=== PATIENT | male | born 1985 | race Two or more races ===

== ENCOUNTER 2025-01-24 12:10 | Observation (INO) | payer MEDICAID, SELFPAY ==
[2025-01-24 12:41] VITALS: BP 108/62; PULSE 108; RESP 18; TEMP 36.6; O2SAT 97
--- NOTE | 2025-01-24 12:46 | EDRME_ITS ---
Rapid Medical Screening Exam [facility] Arrival date/time: 01/24/25 12:10 39-year-old male with no known medical history presents to the emergency room with a chief complaint of generalized weakness, vomiting, nausea, decreased urine output x 2 days patient was sent over by his primary care provider to rule out dehydration. I have greeted and performed a focused initial assessment of this patient. A comprehensive ED assessment and evaluation of the patient, analysis of all test results, and completion of the medical decision making process will be conducted by additional ED providers. Chief Complaint: General Adult/Misc Complain Vital signs: Vital Signs Temperature 97.9 F 01/24/25 12:41 Pulse Rate 108 H 01/24/25 12:41 Respiratory Rate 18 01/24/25 12:41 Blood Pressure 108/62 01/24/25 12:41 Pulse Oximetry (%) 97 01/24/25 12:41 Oxygen Delivery Method Room Air 01/24/25 12:41 Vital signs reviewed by provider: Yes
[2025-01-24 13:11] LABS: Basophils # (Auto) 0.1 Thou/mm3 (0.0-0.2); Basophils % (Auto) 1 % (0-2.5); Eosinophils # (Auto) 0.0 Thou/mm3 (0.0-0.5); Eosinophils % (Auto) 0 % (0-10); Hematocrit 58.7 % (41.0-53.0); Immature Granulocytes Auto 0.04 Thou/mm3 (0.00-0.00); Lymphocytes # (Auto) 2.3 Thou/mm3 (1.0-4.8); Lymphocytes % (Auto) 22 % (10-50); Mean Corpuscular HGB Conc 35.1 g/dl (31.0-37.0); Mean Corpuscular Hemoglobin 33.5 pg (25.0-35.0); Mean Corpuscular Volume 95 fL (80-100); Monocytes # (Auto) 0.9 Thou/mm3 (0.0-0.8); Monocytes % (Auto) 9 % (0-12); Neutrophils # (Auto) 7.1 Thou/mm3 (1.8-7.7); Neutrophils % (Auto) 68 % (37-80); Nucleated Red Blood Cell # 0.00 Thou/mm3 (0.00-0.00); Nucleated Red Blood Cell % 0 /100 WBC (0); Platelet Count 249 Thou/mm3 (140-440); RDW Standard Deviation 51.8 fL (35.1-43.9); Red Blood Count 6.15 Miln/mm3 (4.50-5.90); White Blood Count 10.4 Thou/mm3 (3.8-10.6)
[2025-01-24 13:30] LABS: Alanine Aminotransferase 37 U/L (10-49); Albumin, Serum 5.2 gm/dL (3.5-5.0); Albumin/Globulin Ratio 1.4 (1.2-2.2); Alkaline Phosphatase 79 U/L (46-116); Anion Gap 17 (7-16); Aspartate Amino Transferase 46 U/L (0-34); BUN/Creatinine Ratio 4 Ratio (12-20); Bilirubin,Total 1.8 mg/dL (0.3-1.2); Blood Urea Nitrogen 15 mg/dL (9-23); Calcium 10.7 mg/dL (8.3-10.6); Calcium (Corrected) 10.7 mg/dL (8.5-10.1); Carbon Dioxide 25.2 mMol/L (20.0-31.0); Chloride 97 mMol/L (98-107); Creatine Kinase 948 U/L (34-171); Creatinine (Component) 4.2 mg/dL (0.6-1.3); Estimated Creatinine Clearance 26.4 mL/min (>60); Globulin 3.7 gm/dL (2.3-3.5); Glucose 94 mg/dL (74-106); Lipase 69 U/L (12-53); Osmolality,Calculated 278 (275-295); Potassium 3.6 mMol/L (3.4-5.1); Sodium 139 mMol/L (136-145); Total Protein 8.9 gm/dL (5.7-8.2); eGFR 18 See Note
[2025-01-24 13:38] LABS: Hemoglobin 20.6 g/dL (13.5-16.0)
[2025-01-24 13:54] LABS: Collection Type, Urine Clean Catch
[2025-01-24 14:09] LABS: Bacteria,Urine Rare; Bilirubin,Urine 1+ (Negative); Blood,Urine 1+ (Negative); Broad Casts,Urine < 1 /hpf (0-1); Color,Urine Drk-Yellow (Lt Yel-Yel); Glucose, Urine Trace (Negative); Granular Casts,Urine 2 /hpf (0-1); Hyaline Casts,Urine 1 /hpf (0-1); Ketones,Urine 1+ (Negative); Leukocyte Esterase,Urine Negative (Negative); Nitrite,Urine Negative (Negative); PH,Urine 5.5 (5.0-7.0); Protein,Urine 2+ (Neg - Trace); RBC,Urine 7 /hpf (0-3); Specific Gravity,Urine 1.030 (1.001-1.035); Squamous Epithelial Cell,Urine 2 /hpf (0-5); Urobilinogen,Urine 3.0 mg/dL (0.0-1.0); WBC,Urine 5 /hpf (0-5)
[2025-01-24 14:10] LABS: Clarity,Urine Hazy (Clear/Hazy)
[2025-01-24 14:11] VITALS: BP 130/83; PULSE 99; RESP 19; TEMP 36.8; O2SAT 96
--- NOTE | 2025-01-24 14:29 | EDNOTE_ITS ---
<Statement entered by Cristina Aguila MD - 02/04/25 11:13> As co-signing physician, I was present and available for consult prn. I concur with the plan and care as documented by the midlevel provider. 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 Patient denies diarrhea headache blurred vision seeing spots or loss of consciousness. Patient was referred by PCP for concern of dehydration. Upon exam the patient denies chest pain shortness of breath RME / HPI RME / HPI narrative: 01/24/25 12:10 39-year-old male with no known medical history presents to the emergency room with a chief complaint of generalized weakness, vomiting, nausea, decreased urine output x 2 days patient was sent over by his primary care provider to rule out dehydration. I have greeted and performed a focused initial assessment of this patient. A comprehensive ED assessment and evaluation of the patient, analysis of all test results, and completion of the medical decision making process will be conducted by additional ED providers. Related Data Allergies Allergy/AdvReac Type Severity Reaction Status Date / Time No Known Allergies Allergy Verified 01/24/25 12:13 Review of Systems Review of Systems Narrative Review of Systems: GEN: No fever, no chills, no weight loss EYES: No discharge, no visual changes, no pain HEENT: No ear pain, no congestion, no sore throat PULM: No shortness of breath, no cough, no congestion CV: No chest pain, no dyspnea on exertion, no palpitations GI: + nausea, + vomiting, no diarrhea, no pain, no constipation : No frequency, no urgency, no dysuria MUSC/SKEL: No joint pain, no back pain SKIN: No rash PSYCH: No hallucinations, no depression HEME/LYMPH: No easy bleeding or bruising tendencies NEURO: No weakness, no headache Past Medical History Social History SMOKING STATUS: Never smoker ED Exam Narrative Physical exam: [General: Moderate discomfort but not in any acute distress Head normocephalic HEENT: Within acceptable limits Neck is supple nontender Chest equal chest rise nontender to palpation Respiratory: Clear to auscultation no wheezes crackles or rubs CV: Rate rhythm is regular, tachycardia, no murmurs rubs or clicks Abdomen is distended secondary to body habitus soft nontender no masses positive bowel sounds all 4 quadrants Back: No CVA tenderness no spinous process tenderness from cervical spine thor acic and lumbar spine Skin: Intact no petechiae rash induration ulceration or crepitus Extremities: Moving all extremity against resistance cap refill less than 2 seconds neurosensory intact Neuro: Awake alert oriented x3 Glascow coma 15 no focal deficits] Course Course Course Narrative: Patient's case clinical presentation laboratory results discussed with Dr. Hutchison resident for Dr. Brown who agrees to accept the patient for admission for JORGE LUIS rhabdo myelosis Quality Measures none Orders Category Date Time Status CBC Stat Lab 01/24/25 12:55 Completed CK [Creatine Kinase] Stat Lab 01/24/25 12:55 Completed CMP [Comprehensive Metabolic Panel] Stat Lab 01/24/25 12:55 Completed CMP [Comprehensive Metabolic Panel] Stat Lab 01/24/25 16:10 Completed Creatine Kinase Stat Lab 01/24/25 16:10 Completed Drug Screen,Urine Stat Lab 01/24/25 14:22 Ordered LDH (Lactate Dehydrogenase) Stat Lab 01/24/25 12:55 Completed Lipase Stat Lab 01/24/25 12:55 Completed Magnesium Stat Lab 01/24/25 12:55 Completed Partial Thromboplastin Time Stat Lab 01/24/25 12:55 Completed Prothrombin Time with INR Stat Lab 01/24/25 12:55 Completed UA [Urinalysis] Stat Lab 01/24/25 13:30 Completed Urinalysis, C/S if Indicated Stat Lab 01/24/25 14:22 Ordered Urine Culture Stat Lab 01/24/25 13:30 Received Ondansetron Inj [Zofran Inj] Med 01/24/25 14:28 Discontinued 4 mg IVP X1 ONE Ringers Lactated 1000 ml [Lactated Ringers] 1,000 ml Med 01/24/25 14:25 Discontinued IV 999 mls/hr Ringers Lactated 1000 ml [Lactated Ringers] 1,000 ml Med 01/24/25 15:31 Discontinued IV 999 mls/hr Sodium Chloride 0.9% 1000 ml [Ns] 1,000 ml Med 01/24/25 14:28 Active IV 125 mls/hr Sodium Chloride 0.9% 1000 ml [Ns] 1,000 ml Med 01/24/25 13:55 Discontinued IV 999 mls/hr Sodium Chloride 0.9% 1000 ml [Ns] 1,000 ml Med 01/24/25 14:21 Discontinued IV 999 mls/hr Vital Signs Vital signs: Vital Signs Temperature 97.9 F 01/24/25 12:41 Pulse Rate 108 H 01/24/25 12:41 Respiratory Rate 18 01/24/25 12:41 Blood Pressure 108/62 01/24/25 12:41 Pulse Oximetry (%) 97 01/24/25 12:41 Oxygen Delivery Method Room Air 01/24/25 12:41 Discharge Plan Plan Patient Disposition: HOME (Self Care) Patient condition on transfer: Stable Prescriptions/Referrals Referrals: Cj Lombardo MD [Primary Care Provider] - In 1 week Problem List Clinical Impression: JORGE LUIS (acute kidney injury), Dehydration, Nausea & vomiting Patient/Caregiver Discharge Instructions Print Language: German Stand Alone Forms: Xenia Award Info., Patient Portal Info Letter PA/LEARNING SUPPORT TEACHER Supervising Physician PA/LEARNING SUPPORT TEACHER Supervising Physician: Mg Sandra ENP [facility] Clinical Information Provided by patient Medical Records Reviewed [facility] Labs/Rad/Tests considered, not Ordered None Chronic Illness/Social Conditions which may negatively complicate care or outcome(s)-explain: None or not applicable EKG EKG not done Lab Interpretation Lab(s) interpretation(s): CBC shows no leukocytosis hemoconcentrated with a hemoglobin of 20.6 hematocrit of 58.7 no thrombocytopenia CMP shows a chloride of 97 gap of 17 creatinine of 4.2 BUN of 15 glucose of 94 corrected calcium of 10.7. A T. bili of 1.8 AST 46 ALT 37 alk phos of 97. Creatinine kinase of 948. Lipase of 69. Urine is dark yellow no indications of urinary tract infection. Medication Administration(s) Medication Administration History Sodium Chloride (Ns) 1,000 mls @ 125 mls/hr IV .Q8H ADILIA Stop: 02/23/25 14:27 Last Admin: 01/24/25 17:32 Dose: 125 mls/hr Documented By: ED Discontinued Medications Sodium Chloride (Ns) 1,000 mls @ 999 mls/hr IV .Q1H1M ONE Stop: 01/24/25 14:55 Last Admin: 01/24/25 15:30 Dose: Not Given Documented By: PHILL Non-Admin Reason: Discontinued Sodium Chloride (Ns) 1,000 mls @ 999 mls/hr IV .Q1H1M ONE Stop: 01/24/25 15:21 Last Admin: 01/24/25 15:31 Dose: Not Given Documented By: PHILL Non-Admin Reason: Cancelled by Provider Lactated Ringer's (Lactated Ringers) 1,000 mls @ 999 mls/hr IV .Q1H1M ONE Stop: 01/24/25 15:25 Last Infusion: 01/24/25 17:28 Dose: Infused Documented By: Admin: 01/24/25 14:42 Dose: 999 mls/hr Documented By: PHILL Lactated Ringer's (Lactated Ringers) 1,000 mls @ 999 mls/hr IV .Q1H1M ONE Stop: 01/24/25 16:31 Ondansetron HCl (Ondansetron Inj 2 Mg/Ml Inj 2 Ml) 4 mg IVP X1 ONE; Protocol Stop: 01/24/25 14:29 Last Admin: 01/24/25 14:42 Dose: 4 mg Documented By: PHILL
[2025-01-24 14:38] VITALS: BP 124/99; PULSE 92; RESP 18; TEMP 37; O2SAT 96
[2025-01-24] MEDS: RINGERS LACTATED 1000 ML 1,000 ML 999 ML IV ×2 (14:42→16:05)
[2025-01-24] MEDS: ONDANSETRON INJ 2 MG/ML INJ 2 ML 4 MG IVP (14:42)
[2025-01-24 15:00] LABS: INR 1.1 (0.9-1.3); Partial Thromboplastin Time 24.4 Seconds (22.0-36.0); Prothrombin Time 12.4 Seconds (9.0-12.2)
[2025-01-24 15:26] LABS: LDH (Lactate Dehydrogenase) 301 U/L (120-246); Magnesium 1.9 mg/dL (1.6-2.6)
[2025-01-24 17:05] LABS: Alanine Aminotransferase 28 U/L (10-49); Albumin, Serum 4.0 gm/dL (3.5-5.0); Albumin/Globulin Ratio 1.3 (1.2-2.2); Alkaline Phosphatase 61 U/L (46-116); Anion Gap 10 (7-16); Aspartate Amino Transferase 42 U/L (0-34); BUN/Creatinine Ratio 4 Ratio (12-20); Bilirubin,Total 1.4 mg/dL (0.3-1.2); Blood Urea Nitrogen 13 mg/dL (9-23); Calcium 9.6 mg/dL (8.3-10.6); Calcium (Corrected) 9.6 mg/dL (8.5-10.1); Carbon Dioxide 27.9 mMol/L (20.0-31.0); Chloride 100 mMol/L (98-107); Creatine Kinase 777 U/L (34-171); Creatinine (Component) 3.2 mg/dL (0.6-1.3); Estimated Creatinine Clearance 34.7 mL/min (>60); Globulin 3.0 gm/dL (2.3-3.5); Glucose 80 mg/dL (74-106); Osmolality,Calculated 274 (275-295); Potassium 3.8 mMol/L (3.4-5.1); Sodium 138 mMol/L (136-145); Total Protein 7.0 gm/dL (5.7-8.2); eGFR 25 See Note
--- NOTE | 2025-01-24 17:29 | PC.NURSE ---
Carver and water given per Mg, encourage pt. to drink. Pt. states he's hungry and will drink. Spouse at bedside and states she will make pt. drink.
[2025-01-24] MEDS: SODIUM CHLORIDE 0.9% 1000 ML 1,000 ML 125 ML IV (17:32)
[2025-01-24 17:47] VITALS: BP 140/97; PULSE 103; RESP 18; O2SAT 98
--- NOTE | 2025-01-24 17:57 | ESHP_ITS ---
<Statement entered by Ginger Hutchison MD - 01/24/25 18:39> Mr. Perkins is a 39-year-old male with no past medical history who presented to the ED with nausea/generalized weakness and dizziness for the last 24 hours. 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 Patient denied drinking water during long hours. Patient states that he had similar symptoms about 6 months ago however after resting patient's symptoms improved. Patient's last meal was 2 days ago. Patient seen and examined in ED. Status post IV Zofran, patient is able to tolerate solid diet. Will admit patient for prerenal azotemia versus pain pigmented induced nephropathy under observation. Will trend CK in a.m., follow-up lipid panel, continue with IV fluids at 125 NS per hour, antiemetics, Protonix, encourage oral fluids. I discussed with and supervised the logistics intern physician who took care of this patient. I personally saw and examined the patient and discussed the assessment and plan with the entire medicine team, including my attending Dr. Brown, I agree with most of the assessment and plan as documented below Ginger Hutchison M.D. PGY-3 Disclaimer: Despite multiple revisions, due to the dictation software being used, the document bellow may not be free of grammatical errors including phonetic/typographic errors. However, this does not deter from our commitment to providing health care in the patient's best interest in mind. Documentation for date of: 01/24/25 HPI History of Present Illness Chief complaint: Weakness, nausea and vomiting History of present illness: This is a 39 year old male with no past medical history who presents to the emergency department for evaluation of nausea, emesis, decreased urinary output, and generalized weakness x2 days. 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 He has not able to tolerate PO intake due to nausea and vomiting. Patient drinks 2-3 20-22oz cans of beer daily. Last drink was 2 days ago. Patient denies any chest pain or shortness of breath. Patient reports associated headache and epigastric abdominal discomfort. Pateint has had an episode of emesis in the ED, however improved after given zofran. ED course: 2L bolus LR, zofran, and maintenance NS at 125 PMH: Currently being worked up for depression PSH: denies Allergies: NKDA Medications: none SH: denies drug or tobacco use. Drinks 2-3 20-22oz cans of beer daily for a long time. FH: HTN runs in the family Code status: Full code Review of Systems Review of Systems Systems Reviewed: All systems reviewed, normal except as documented Exam Vital Signs Temp Pulse Resp BP Pulse Ox O2 Del Method 98.6 F 103 H 18 140/97 H 98 Room Air 01/24/25 14:38 01/24/25 17:47 01/24/25 17:47 01/24/25 17:47 01/24/25 17:47 01/24/25 17:47 Narrative Exam General: Awake and in no acute distress. Conversational and non-toxic appearing. HEENT: Normocephalic, atraumatic, mucous membranes moist. Heart: Regular rate and rhythm, no murmurs. Distant heart sounds. Lungs: Clear to auscultation with no wheezing or crackles. No use of accessory muscles. Symmetric chest rise. Abdomen: Soft, nondistended, nontender. No guarding or rebound tenderness. Neurologic: Alert and oriented x3, no gross neurological deficit, and patient able to move all 4 extremities. No tremor. Extremities: No pretibial edema. Skin: No rash or ecchymoses. Psychiatric: Cooperative, appropriate mood and affect Results: Labs 01/25/25 05:12 01/25/25 05:12 Labs: Short CBC 01/24/25 Range/Units 12:55 WBC 10.4 (3.8-10.6) Thou/mm3 Hgb 20.6 H* (13.5-16.0) g/dL Hct 58.7 H (41.0-53.0) % Plt Count 249 (140-440) Thou/mm3 BMP 01/24/25 01/24/25 12:55 16:10 Sodium 139 138 Potassium 3.6 3.8 Chloride 97 L 100 Carbon Dioxide 25.2 27.9 BUN 15 13 Creatinine 4.2 H* 3.2 H D Glucose 94 80 Calcium 10.7 H 9.6 Cardiac Enzymes 01/24/25 01/24/25 Range/Units 12:55 16:10 Total Creatine Kinase 948 H 777 H D (34-171) U/L Liver Function 01/24/25 01/24/25 Range/Units 12:55 16:10 Total Bilirubin 1.8 H 1.4 H (0.3-1.2) mg/dL AST 46 H 42 H (0-34) U/L ALT 37 28 (10-49) U/L Alkaline Phosphatase 79 61 D (46-116) U/L Albumin 5.2 H 4.0 D (3.5-5.0) gm/dL Urine 01/24/25 Range/Units 13:30 Urine Color Drk-Yellow A (Lt Yel-Yel) Urine Clarity Hazy (Clear/Hazy) Urine pH 5.5 (5.0-7.0) Ur Specific [place] 1.030 (1.001-1.035) Urine Protein 2+ A (Neg - Trace) Urine Glucose (UA) Trace (Negative) Quality Measures Quality Measures none Medications Home Medications and Allergies Home Medications ?Medication ?Instructions ?Recorded ?Confirmed ?Type No Known Home Medications 01/24/2507/19 History Allergies Allergy/AdvReac Type Severity Reaction Status Date / Time No Known Allergies Allergy Verified 01/24/25 12:13 Visit Medications Sodium Chloride (Ns) 1,000 mls @ 125 mls/hr IV .Q8H ADILIA Stop: 02/23/25 14:27 Last Admin: 01/24/25 17:32 Dose: 125 mls/hr Discontinued Medications Sodium Chloride (Ns) 1,000 mls @ 999 mls/hr IV .Q1H1M ONE Stop: 01/24/25 14:55 Last Admin: 01/24/25 15:30 Dose: Not Given Sodium Chloride (Ns) 1,000 mls @ 999 mls/hr IV .Q1H1M ONE Stop: 01/24/25 15:21 Last Admin: 01/24/25 15:31 Dose: Not Given Lactated Ringer's (Lactated Ringers) 1,000 mls @ 999 mls/hr IV .Q1H1M ONE Stop: 01/24/25 15:25 Last Infusion: 01/24/25 17:28 Dose: Infused Lactated Ringer's (Lactated Ringers) 1,000 mls @ 999 mls/hr IV .Q1H1M ONE Stop: 01/24/25 16:31 Last Infusion: 01/24/25 17:06 Dose: Infused Ondansetron HCl (Ondansetron Inj 2 Mg/Ml Inj 2 Ml) 4 mg IVP X1 ONE; Protocol Stop: 01/24/25 14:29 Last Admin: 01/24/25 14:42 Dose: 4 mg Assessment & Plan Plan 39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 Presented with N/V and poor oral intake. Vital signs significant for tachycardia. Cr on admission 4.2 which improved to 3.2 after 2L bolus of LR. CK 948 on admission which improved to 777. UA positive for RBC which is most likely due to heme pigmented nephropathy. ED course: 2L bolus LR, zofran, and maintenance NS at 125 Hgb of 20.6. Polycythemia may be in the setting of severe dehydration. Plan: - Admit for observation - Maintenance IVF LR at 125 - Encourage oral hydration >2L a day - Continue to monitor VSS and labs - Pending repeat CK in the AM - Pending TSH #Elevated liver enzymes Ast 46, ALT 37. T Bili 1.8 Most likely in the setting of chronic alcohol use. - CTM - Ordered lipid panel - Patient will need to follow up outpatient with their PCP in regards to elevated liver enzymes #Hypertension Patient has never been formally diagnosed with HTN. However states that he has noted to have elevated BP during his dental appointments. Last BP measurement in the ED 140/97 Plan: - CTM - Patient will need to follow up outpatient with PCP #Depression Patient has not formally diagnosed with depression yet but is currently being worked up outpatient Plan: - Outpatient follow-up Health Maintenance Disposition: Observation DVT prophylaxis: SCDs GI prophylaxis: Protonix Diet: Renal Lines: Peripheral IV CODE STATUS: FULL Patient plan of care was discussed with the senior resident, Dr. Hutchison, and attending physician, Dr. Brown. Hyacinth Kitchen, DO PGY-1 Attending Provider Attestation/Addendum I have examined the patient, reviewed labs and imaging findings, discussed the case with the resident(s), and reviewed entered orders. I agree with the plan of care as outlined in this note, with these additional summaries/recommendations: After examination of the patient and review of the clinical data, I feel that this patient needs admission to the hospital for further treatment and evaluation. Patient is a 39-year-old male with no significant past medical history presents to [facility] emergency department on 01/24/2025 with nonspecific complaints of intractable nausea/vomiting, body aches, and dizziness. Patient seen at bedside. He reports he works in the [place] and has been in extreme heat the last 48 hours. He denies a previous history of kidney disease. Patient diagnosed with severe acute kidney injury. On admission creatinine 4.2 and BUN 15. Most likely etiology is prerenal azotemia from severe dehydration versus less likely heme pigment induced nephropathy from rhabdomyolysis. Continue aggressive IV fluids. Avoid nephrotoxic agents and renally dose medications. Monitor urinary output. If renal function worsens then we will consult nephrology. On admission total creatinine kinase 948. Trend total CK until downtrend. Continue aggressive IV fluids. Minimal 1+ blood seen on UA. Patient also noted to have hyperbilirubinemia and hemoconcentration which all appear secondary to severe dehydration. Patient counseled on avoiding excessive heat and maintaining adequate fluid intake while working. Patient will be admitted to observation and will be monitored closely. Patient updated on the plan and in agreement. All questions answered to satisfaction. Please see residents note for additional details and management. Dr. Stephanie MD
[2025-01-24 18:27] LABS: Cardiac Risk Estimate 5.6 RATIO (4.0-6.7); Cholesterol 208 mg/dL (132-200); HDL Cholesterol 37 mg/dL (40-60); LDL Cholesterol,Calculated 133 mg/dL (0-130); Triglycerides 188 mg/dL (30-150)
--- NOTE | 2025-01-24 18:46 | PC.NURSE ---
REPORT CALLED TO [facility]T FAL[facility]. NO FURTHER QUESTIONS. PATIENT WILL BE TAKEN UPSTAIRS FOR MED SURG ADMIT
[2025-01-24 19:21] VITALS: BMI 27.9
[2025-01-24 20:00] VITALS: BP 136/80; PULSE 83; RESP 20; TEMP 36.3; O2SAT 96
[2025-01-24] MEDS: RINGERS LACTATED 1000 ML 1,000 ML 125 ML IV (20:18)
[2025-01-24 21:50] LABS: Collection Type, Urine Clean Catch; Squamous Epithelial Cell,Urine 0 /hpf (0-5)
[2025-01-24 21:55] LABS: Bilirubin,Urine Negative (Negative); Blood,Urine Trace (Negative); Clarity,Urine Clear (Clear/Hazy); Color,Urine Yellow (Lt Yel-Yel); Culture Indicated,Urine Not Indicated; Glucose, Urine Negative (Negative); Hyaline Casts,Urine < 1 /hpf (0-1); Ketones,Urine 1+ (Negative); Leukocyte Esterase,Urine Negative (Negative); Nitrite,Urine Negative (Negative); PH,Urine 6.0 (5.0-7.0); Protein,Urine Trace (Neg - Trace); RBC,Urine < 1 /hpf (0-3); Specific Gravity,Urine 1.016 (1.001-1.035); Urobilinogen,Urine 2.0 mg/dL (0.0-1.0); WBC,Urine 2 /hpf (0-5)
[2025-01-24 22:02] LABS: Amphetamine/Methamp Scrn,U Negative (Negative); Barbiturate Screen,Urine Negative (Negative); Benzodiazepines Screen,Urine Negative (Negative); Benzoylecgonine Screen, Ur Negative (Negative); Fentanyl Screen,Urine Negative (Negative); Opiate Screen,Urine Negative (Negative); THC Screen,Urine Negative (Negative)
[2025-01-24 22:19] VITALS: PULSE 83; RESP 18; RESP 94
[2025-01-25] VITALS: BP 122/75; PULSE 73; RESP 20; TEMP 36.4; O2SAT 96
[2025-01-25 04:00] VITALS: BP 153/87; PULSE 78; RESP 20; TEMP 36.5; O2SAT 98
[2025-01-25] MEDS: RINGERS LACTATED 1000 ML 1,000 ML 125 ML IV (05:51)
[2025-01-25 06:04] LABS: Basophils # (Auto) 0.0 Thou/mm3 (0.0-0.2); Basophils % (Auto) 1 % (0-2.5); Eosinophils # (Auto) 0.1 Thou/mm3 (0.0-0.5); Eosinophils % (Auto) 2 % (0-10); Hematocrit 49.1 % (41.0-53.0); Hemoglobin 16.7 g/dL (13.5-16.0); Immature Granulocytes Auto 0.02 Thou/mm3 (0.00-0.00); Lymphocytes # (Auto) 2.1 Thou/mm3 (1.0-4.8); Lymphocytes % (Auto) 34 % (10-50); Mean Corpuscular HGB Conc 34.0 g/dl (31.0-37.0); Mean Corpuscular Hemoglobin 32.9 pg (25.0-35.0); Mean Corpuscular Volume 97 fL (80-100); Monocytes # (Auto) 0.6 Thou/mm3 (0.0-0.8); Monocytes % (Auto) 10 % (0-12); Neutrophils # (Auto) 3.3 Thou/mm3 (1.8-7.7); Neutrophils % (Auto) 54 % (37-80); Nucleated Red Blood Cell # 0.00 Thou/mm3 (0.00-0.00); Nucleated Red Blood Cell % 0 /100 WBC (0); Platelet Count 201 Thou/mm3 (140-440); RDW Standard Deviation 53.0 fL (35.1-43.9); Red Blood Count 5.08 Miln/mm3 (4.50-5.90); White Blood Count 6.2 Thou/mm3 (3.8-10.6)
[2025-01-25 06:36] LABS: Alanine Aminotransferase 27 U/L (10-49); Albumin, Serum 3.5 gm/dL (3.5-5.0); Albumin/Globulin Ratio 1.3 (1.2-2.2); Alkaline Phosphatase 58 U/L (46-116); Anion Gap 11 (7-16); Aspartate Amino Transferase 46 U/L (0-34); BUN/Creatinine Ratio 8 Ratio (12-20); Bilirubin,Total 1.2 mg/dL (0.3-1.2); Blood Urea Nitrogen 13 mg/dL (9-23); Calcium 8.9 mg/dL (8.3-10.6); Calcium (Corrected) 9.3 mg/dL (8.5-10.1); Carbon Dioxide 26.2 mMol/L (20.0-31.0); Chloride 102 mMol/L (98-107); Creatine Kinase 699 U/L (34-171); Creatinine (Component) 1.7 mg/dL (0.6-1.3); Estimated Creatinine Clearance 70.6 mL/min (>60); Globulin 2.8 gm/dL (2.3-3.5); Glucose 81 mg/dL (74-106); Magnesium 1.7 mg/dL (1.6-2.6); Osmolality,Calculated 276 (275-295); Phosphorous 2.8 mg/dL (2.4-5.1); Potassium 3.4 mMol/L (3.4-5.1); Sodium 139 mMol/L (136-145); Thyroid Stimulating Hormone 2.31 uIU/mL (0.55-4.78); Total Protein 6.3 gm/dL (5.7-8.2); eGFR 53 See Note
[2025-01-25 08:00] VITALS: BP 135/89; PULSE 76; RESP 16; TEMP 36.3; O2SAT 95
[2025-01-25] MEDS: Magnesium Sulfate 4 GM Ivpb 4 GM/50 ML BAG IV (08:25)
[2025-01-25] MEDS: SODIUM CHLORIDE 0.9% 500 ML 500 ML 999 ML IV (08:29)
--- NOTE | 2025-01-25 11:44 | PC.NURSE ---
Verified with dr campos pt is clear to dc. Magnesium completed per MD pt may go at this time no new orders given.
[2025-01-25 12:00] VITALS: BP 130/85; PULSE 64; RESP 16; TEMP 36.1; O2SAT 95
[2025-01-25 12:14] VITALS: PULSE 80; RESP 20; RESP 95
--- NOTE | 2025-01-25 15:00 | ESDS_ITS ---
<Statement entered by Ginger Hutchison MD - 01/25/25 15:50> I discussed with and supervised the kinesiology internship physician who took care of this patient. I personally saw and examined the patient and discussed the assessment and plan with the entire medicine team, including my attending Dr. Brown, I agree with most of the assessment and plan as documented below Ginger Hutchison M.D. PGY-3 Disclaimer: Despite multiple revisions, due to the dictation software being used, the document bellow may not be free of grammatical errors including phonetic/typographic errors. However, this does not deter from our commitment to providing health care in the patient's best interest in mind. Planned Discharge Date 01/25/25 DS: Providers Provider Date of admission: 01/24/25 17:51 Primary care physician: Cj Lombardo MD Admitting Provider: Mariano Brown MD Attending Provider on Admission: Mariano Brown MD Attending Provider on DC: Dr. 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 Patient worked extended hours under the sun with poor hydration. Presented with N/V and poor oral intake. 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 Patient was also noted to have Hgb of 20.6 on admission. His polycythemia was thought to be in the setting of severe dehydration. IFV maintanance and bolus were given to the patient along with oral hydration. The next day patient reports significant improvement in his symptoms after IVF and oral hydration. Patient labs improved: Cr of 1.7, Hgb 16.7, T bili 1.2, CK 699. Patient's vital signs remained stable and he is in stable condition for discharge with hemodynamic stability. Patient lipid panel showed Triglyceride of 188, Cholesterol of 208 and LDL of 133. Advised patient to follow up outpatient with his PCP for repeat labs within 1 week of hospital discharge. Advised patient to follow up with his PCP in regards to HLD and HTN as well. All questions answered and ED return precautions given. Advised patient to stay hydrated, drink plenty of fluids at work, avoid excess heat and excess exertion over the next 1 week. #Heme pigment induced nephropathy vs #Prerenal azotemia #Elevated CK #Dehydration #Polycythemia #HLD #Elevated blood pressure #Elevated liver enzymes #Depression (Being worked up outpatient) Please see your primary doctor to follow up with your new elevated blood pressure and lipids. Please avoid excess heat, avoid excess exertion over the next 1 week. Please continue to drink oral fluids especially during work hours or when out in the sun. Repeat lab work in 1 week. Please return to the ED if your symptoms worsen. Patient plan of care was discussed with the senior resident, Dr. Hutchison, and attending physician, Dr. Brown. Hyacinth Kitchen, DO PGY-1 Status at Discharge Functional status at discharge: independent ambulation Overall status at discharge: patient is back to baseline Time Spent with Patient Time attestation: Total time spent providing and/or coordinating discharge services: Time spent: Greater than 30 minutes Exam Vital Signs Temp Pulse Resp BP Pulse Ox O2 Del Method 97.0 F 80 20 130/85 H 95 Room Air 01/25/25 12:00 01/25/25 12:14 01/25/25 12:14 01/25/25 12:00 01/25/25 12:00 01/25/25 12:00 Narrative Exam General: Awake and in no acute distress. Conversational and non-toxic appearing. HEENT: Normocephalic, atraumatic, mucous membranes moist. Heart: Regular rate and rhythm, no murmurs. Distant heart sounds. Lungs: Clear to auscultation with no wheezing or crackles. No use of accessory muscles. Symmetric chest rise. Abdomen: Soft, nondistended, nontender. No guarding or rebound tenderness. Neurologic: Alert and oriented x3, no gross neurological deficit, and patient able to move all 4 extremities. No tremor. Extremities: No pretibial edema. Skin: No rash or ecchymoses. Psychiatric: Cooperative, appropriate mood and affect Discharge Plan Plan Patient Disposition: HOME (Self Care) Patient condition on transfer: Stable Prescriptions/Referrals Prescriptions/Med Rec: No Action No Known Home Medications Referrals: Cj Lombardo MD [Primary Care Provider, Family Practice] Patient/Caregiver Discharge Instructions Other Discharge Activity Instructions:: Please see your primary doctor to follow up with your new elevated blood pressure and lipids. Please avoid excess heat, avoid excess exertion over the next 1 week. Please continue to drink oral fluids especially during work hours or when out in the sun. Repeat lab work in 1 week. Please return to the ED if your symptoms worsen. Consulte a sullivan m?dico de atenci?n primaria para realizar un seguimiento de sullivan nueva presi?n arterial y l?pidos elevados. Evite el exceso de calor, evite el exceso de esfuerzo taj la pr?xima semana. Contin?e bebiendo l?quidos orales, especialmente taj las horas de trabajo o cuando est? al lisa. Repita el trabajo de laboratorio en 1 semana. Regrese al servicio de urgencias si julia s?ntomas empeoran Education Materials: Understanding Alcoholism, Alcoholism Resources, Dehydration Print Language: Maltese Stand Alone Forms: X[employer] Award Info., Patient Portal Info Letter, Work/Release Restrictions Discharge Order Discharge Orders: Discharge (Routine); Ordered 01/25/25 Ordered By: Ginger Hutchison Quality Discharge Quality Measures VTE prophylaxis Attestestation MD Attestation I have examined the patient, reviewed labs and imaging findings, discussed the case with the resident(s), and reviewed entered orders. I agree with the plan of care as outlined in this note. Time Spent: [address] Stephanie MD
== END 2025-01-25 12:33 | disposition home or self-care (01) ==
LOC: SERX 17:51 → SERHOLD 18:04 → S3NX 19:02
PROVIDERS: Nurse Practitioner Family; Registered Nurse General Practice; Admitting Provider Student in an Organized Health Care Education/Training Program; Emergency Provider Emergency Medicine; PCP Family Medicine; Visit Provider Student in an Organized Health Care Education/Training Program
DX: N17.9 Acute kidney failure, unspecified (principal); R79.89 Other specified abnormal findings of blood chemistry; R74.8 Abnormal levels of other serum enzymes; D75.1 Secondary polycythemia; E86.0 Dehydration; E78.5 Hyperlipidemia, unspecified; F32.A Depression, unspecified; I10 Essential (primary) hypertension
CPT/HCPCS: 36415; 80048; 80053; 80061; 80307; 81001; 82550; 83615; 83690; 83735; 84100; 84443; 85025; 85610; 85730; 87086; 96361; 96374; 96375; 96376; 99285; A4649; G0378; J2405; J2470; J3475; J7030; J7120; J7999; A9270